=== PATIENT | male | born 1990 | race American Indian/Alaskan Native ===

== ENCOUNTER 2016-08-20 02:53 | Emergency (ER) | payer SELFPAY ==
[2016-08-20 06:55] VITALS: BP 128/76
[2016-08-20] MEDS ORDERED: MOTRIN PO ONE (07:51)
--- NOTE | 2016-08-20 07:52 | Emergency Department Report ---
ED Lower Extremity HPI - General Chief Complaint: Extremity Injury, Lower Stated Complaint: LEFT FOOT INJURY Time Seen by Provider: 08/20/16 07:50 Source: patient Mode of arrival: Ambulatory Limitations: No Limitations - History of Present Illness Initial Comments: Patient reports left foot pain after it was trapped between two pallets while at work. Complaint: foot injury (left) Onset/Timin -: hour(s) Injury: Foot: Left Type of Injury: unknown Place: work Severity: severe Severity scale (0 -10): 8 Improves With: immobilization Worsens With: weight bearing Context: direct blow Other Symptoms: other (none) Associated Symptoms: swelling, ambulatory. denies: snap/pop sensation, numbness , tingling, unable to bear weight, able to partially bear weight Treatments Prior to Arrival: other (none) - Related Data Previous Rx's Medication Instructions Recorded Last Taken Type ALBUTEROL Inhaler [ProAir HFA 1 puff IH QID PRN #1 inhalation 05/06/15 Unknown Rx Inhaler] Famotidine [Pepcid] 20 mg PO DAILY #30 tablet 05/06/15 Unknown Rx Diazepam Tab [Valium] 5 mg PO TID PRN #10 tablet 08/20/15 Unknown Rx Ibuprofen [Motrin 600 MG tab] 600 mg PO Q8H PRN #15 tablet 08/20/16 Unknown Rx Allergies Allergy/AdvReac Type Severity Reaction Status Date / Time codeine Allergy Rash Verified 11/06/13 01:36 cortisone [Cortisone] Allergy Rash Verified 11/06/13 01:36 ED Review of Systems ROS: Stated complaint: LEFT FOOT INJURY Other details as noted in HPI Respiratory: denies: cough, orthopnea, shortness of breath, SOB with exertion, SOB at rest, stridor, wheezing Cardiovascular: denies: chest pain, palpitations, dyspnea on exertion, orthopnea , edema, syncope, paroxysmal nocturnal dyspnea Gastrointestinal: denies: abdominal pain, nausea, vomiting, diarrhea, constipation Musculoskeletal: arthralgia (left foot). 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 Monroe last year, but he cannot afford the medications. - Surgical History Past Surgical History?: No - Social History Smoking Status: Never Smoker Substance Use Type: None - Medications Home Medications: Home Medications Medication Instructions Recorded Confirmed Last Taken Type ALBUTEROL Inhaler [ProAir HFA 1 puff IH QID PRN #1 inhalation 05/06/15 Unknown Rx Inhaler] Famotidine [Pepcid] 20 mg PO DAILY #30 tablet 05/06/15 Unknown Rx Diazepam Tab [Valium] 5 mg PO TID PRN #10 tablet 08/20/15 Unknown Rx Ibuprofen [Motrin 600 MG tab] 600 mg PO Q8H PRN #15 tablet 08/20/16 Unknown Rx ED Physical Exam - General Limitations: No Limitations General appearance: alert, in no apparent distress - Head Head exam: Present: atraumatic - ENT ENT exam: Present: normal exam, mucous membranes moist. Absent: mucous membranes dry - Neck Neck exam: Present: normal inspection, full ROM. Absent: tenderness, meningismus, lymphadenopathy, thyromegaly - Respiratory Respiratory exam: Present: normal lung sounds bilaterally. Absent: respiratory distress, wheezes, rales, rhonchi, stridor, chest wall tenderness, accessory muscle use, decreased breath sounds, prolonged expiratory - Cardiovascular Cardiovascular Exam: Present: regular rate, normal rhythm, normal heart sounds. Absent: systolic murmur, diastolic murmur, rubs, gallop, clicks, JVD, S3, S4 - Extremities Exam Extremities exam: Present: normal inspection, full ROM, normal capillary refill. Absent: tenderness, pedal edema, joint swelling, calf tenderness - Expanded Lower Extremity Exam Left Hip exam: Present: normal inspection, full ROM, pelvic stability Ankle exam: Present: normal inspection, full ROM. Absent: tenderness, swelling , abrasion, laceration, ecchymosis, deformity, crepidus, dislocation, erythema, anterior draw sign Foot/Toe exam: Present: normal inspection, full ROM, tenderness (with palpation to lateral), swelling (minimal to dorsum). Absent: abrasion, laceration, ecchymosis, deformity, crepidus, dislocation, erythema, amputation, puncture wound, foreign body, calcaneal tenderness, tenderness at base of 5th metatarsal , nail avulsion, subungual hematoma Neuro vascular tendon exam: Present: no vascular compromise. Absent: pulse deficit, abnormal cap refill, motor deficit, sensory deficit, tendon deficit, extremity cold to touch, pallor, abnormal 2-point discrimination, decreased fine /light touch, foot drop, peroneal nerve deficit, significant pain with passive ROM of distal joint Gait: Positive: observed and normal - Back Exam Back exam: Present: normal inspection. Absent: CVA tenderness (R), CVA tenderness (L), muscle spasm, paraspinal tenderness, vertebral tenderness - Neurological Exam Neurological exam: Present: alert, oriented X3, CN II-XII intact, normal gait, reflexes normal. Absent: motor sensory deficit - Skin Skin exam: Present: warm, dry, intact, normal color. Absent: rash ED Course Vital Signs 08/20/16 08/20/16 03:22 06:45 Temperature 98.2 F 98 F Pulse Rate 78 70 Respiratory 18 18 Rate Blood Pressure 133/80 Blood Pressure 128/76 [Left] O2 Sat by Pulse 98 98 Oximetry - Reevaluation(s) Reevaluation #1: 08/20/16 07:51 analgesic and radiology studies ordered ED Lower Extremity MDM - Radiology Data Radiology results: image reviewed EXAM: XR FOOT 3 LT HISTORY: left foot pain/caught between two pallets TECHNIQUE: Three views of the left foot PRIORS: None. FINDINGS: There is no evidence of acute fracture. There is no evidence of joint dislocation. There is no significant focal osseous lesions seen. IMPRESSION: There is no acute abnormality identified. - Medical Decision Making During the course of ED, analgesic and radiology studies ordered. The imaging study revealed no acute abnormality identified. Patient was sent home with a post-op shoe, prescription for Ibuprofen, instructed to follow-up with selective referral given at discharge, he verbalized understanding - Differential Diagnosis Left Foot Pain, Left Foot Fracture Critical care attestation.: If time is entered above; I have spent that time in minutes in the direct care of this critically ill patient, excluding procedure time. ED Disposition Clinical Impression: Left foot pain Disposition: DISCHARGED TO HOME OR SELFCARE Is pt being admited?: No Does the pt Need Aspirin: No Condition: Stable Instructions: Arthralgia (ED) Additional Instructions: Take medication as directed. Follow up with the selective referral given at discharge. Wear post-op shoe for comfort Prescriptions: Ibuprofen [Motrin 600 MG tab] 600 mg PO Q8H PRN #15 tablet PRN Reason: Pain Referrals: PRIMARY CAREMD [Primary Care Provider] - 3-5 Days RUSTY HERRERA MD [Staff Physician] - 3-5 Days Forms: Work/School Release Form(ED) Time of Disposition: 08:57
--- NOTE | 2016-08-20 08:43 | XRay Report ---
FINAL REPORT EXAM: XR FOOT 3 LT HISTORY: left foot pain/caught between two pallets TECHNIQUE: Three views of the left foot PRIORS: None. FINDINGS: There is no evidence of acute fracture. There is no evidence of joint dislocation. There is no significant focal osseous lesions seen. IMPRESSION: There is no acute abnormality identified.
== END 2016-08-20 09:05 | disposition home or self-care (01) ==
LOC: ED 02:53
DX: M79.672 Pain in left foot (principal); W22.8XXA Striking against or struck by other objects, initial encounter; Y93.9 Activity, unspecified; Y92.9 Unspecified place or not applicable; Y99.9 Unspecified external cause status

== ENCOUNTER 2016-10-16 04:35 | Emergency (ER) | payer OTHER ==
[2016-10-16 08:17] VITALS: BP 137/95
[2016-10-16] MEDS ORDERED: LIDOCAINE VISCOUS 2% PO ONE (08:52)
[2016-10-16] MEDS ORDERED: ALUM-MAG HYDROX-SIMETH 200-200-20MG/5ML PO ONE (08:52)
--- NOTE | 2016-10-16 10:09 | XRay Report ---
ROUTINE CHEST, TWO VIEWS: HISTORY: chest pain. The trachea, heart, mediastinal contour, lung vasquez and bony thorax are unremarkable. IMPRESSION: Unremarkable chest x-ray. No significant change since 05/06/15.
--- NOTE | 2016-10-16 10:49 | Emergency Department Report ---
ED General Adult HPI - General Chief complaint: Chest Pain Stated complaint: CHEST PAIN Time Seen by Provider: 10/16/16 08:39 Source: patient Mode of arrival: Ambulatory Limitations: No Limitations - History of Present Illness Initial comments: PT c/o pain with eating x 1 week. PT states he feels like his food sits in his chest. PT states he has a hx of GERD and he is currently not taking medication for it. PT denies n/v. pt states he can tolerate po MD Complaint: gerd Onset/Timin -: Gradual, week(s) Location: chest Radiation: non-radiation Severity scale (0 -10): 5 Consistency: intermittent Worsens with: eating Associated Symptoms: denies: fever/chills, nausea/vomiting Treatments Prior to Arrival: none - Related Data Previous Rx's Medication Instructions Recorded Last Taken Type Omeprazole Magnesium [PriLOSEC Otc] 20 mg PO QDAY #14 tablet. 10/16/16 Unknown Rx Allergies Allergy/AdvReac Type Severity Reaction Status Date / Time codeine Allergy Rash Verified 11/06/13 01:36 cortisone [Cortisone] Allergy Rash Verified 11/06/13 01:36 ED Review of Systems ROS: Stated complaint: CHEST PAIN Other details as noted in HPI Comment: All other systems reviewed and negative Cardiovascular: chest pain (feels like food is stuck ) Gastrointestinal: denies: abdominal pain, nausea, vomiting Musculoskeletal: denies: back pain ED Past Medical Hx - Past Medical History Hx Asthma: No Additional medical history: Patient reports being diagnosed with glaucoma 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 - Social History Smoking Status: Former Smoker Substance Use Type: None - Medications Home Medications: Home Medications Medication Instructions Recorded Confirmed Last Taken Type Omeprazole Magnesium [PriLOSEC Otc] 20 mg PO QDAY #14 tablet. 10/16/16 Unknown Rx ED Physical Exam - General Limitations: No Limitations General appearance: alert, in no apparent distress - Head Head exam: Present: atraumatic, normocephalic - Eye Eye exam: Present: normal appearance - ENT ENT exam: Present: normal exam, normal orophraynx - Neck Neck exam: Present: normal inspection - Respiratory Respiratory exam: Present: normal lung sounds bilaterally. Absent: respiratory distress - Cardiovascular Cardiovascular Exam: Present: regular rate, normal rhythm, normal heart sounds - GI/Abdominal GI/Abdominal exam: Present: soft, normal bowel sounds. Absent: tenderness - Rectal Rectal exam: Present: deferred - Extremities Exam Extremities exam: Present: normal inspection, full ROM - Back Exam Back exam: Present: normal inspection, full ROM - Neurological Exam Neurological exam: Present: alert, oriented X3, normal gait - Psychiatric Psychiatric exam: Present: normal affect, normal mood - Skin Skin exam: Present: warm, dry ED Course Vital Signs 10/16/16 08:10 Temperature 98.1 F Pulse Rate 77 Blood Pressure 137/95 O2 Sat by Pulse 98 Oximetry - Reevaluation(s) Reevaluation #1: 10/16/16 10:48 PT state he is feeling much better after meds. PT aware he will need to take medication daily to treat his Gerd. PT aware he will need to follow up with GI and he may need an outpt EGD. PT has no questions at this time. - Pulse Oximetry Interpretation Digit-Finger Initial Pulse Oximetry Readin Actions Taken: none ED Medical Decision Making - EKG Data EKG shows normal: sinus rhythm Rate: normal - EKG Data When compared to previous EKG there are: other (early repolarization seen on previous EKG ) - Radiology Data Radiology results: report reviewed CXR - NAP - Differential Diagnosis gerd, dyspepsia, dysphagia Critical care attestation.: If time is entered above; I have spent that time in minutes in the direct care of this critically ill patient, excluding procedure time. ED Disposition Clinical Impression: Dyspepsia Disposition: DISCHARGED TO HOME OR SELFCARE Is pt being admited?: No Does the pt Need Aspirin: No Condition: Stable Instructions: Gastroesophageal Reflux Disease (ED), Esophageal Spasm (ED), Diet for Ulcers and Gastritis (ED) Referrals: PRIMARY CAREMD [Primary Care Provider] - 3-5 Days [facility] [Provider Group] - 3-5 Days Forms: Work/School Release Form(ED) Time of Disposition: 10:51
== END 2016-10-16 11:04 | disposition home or self-care (01) ==
LOC: ED 04:35
DX: R10.13 Epigastric pain (principal); Z87.891 Personal history of nicotine dependence; Z88.6 Allergy status to analgesic agent; Z88.8 Allergy status to other drugs, medicaments and biological substances
CPT/HCPCS: 71020; 93005; 93010; 99283

== ENCOUNTER 2017-03-14 03:21 | Emergency (ER) | payer OTHER ==
[2017-03-14 04:19] LABS: Hematocrit 44.8 % (35.5-45.6); Hemoglobin 14.9 gm/dl (11.8-15.2); Mean Corpuscular HGB Conc 33 % (32-34); Mean Corpuscular Hemoglobin 31 pg (28-32); Mean Corpuscular Volume 93 fl (84-94); Platelet Count 193 K/mm3 (140-440); Red Blood Count 4.81 M/mm3 (3.65-5.03); White Blood Count 5.8 K/mm3 (4.5-11.0)
[2017-03-14 04:42] LABS: Anion Gap 19 mmol/L; Blood Urea Nitrogen 9 mg/dL (9-20); Carbon Dioxide 22 mmol/L (22-30); Chloride 103.1 mmol/L (98-107); Glucose 130 mg/dL (75-100); Potassium 3.6 mmol/L (3.6-5.0); Sodium 140 mmol/L (137-145)
[2017-03-14 04:44] LABS: INR 0.96 (0.87-1.13); Partial Thromboplastin Time 28.7 Sec. (24.2-36.6)
[2017-03-14] MEDS ORDERED: FLEXERIL PO ONE (07:18)
--- NOTE | 2017-03-14 07:37 | Emergency Department Report ---
HPI - General Chief Complaint: Extremity Injury, Lower Time Seen by Provider: 03/14/17 07:33 - HPI HPI: 26-year-old male with no past medical history presents to ED complaining of left -sided leg pain for the past 2 weeks. 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 Patient states he decided to come in today and have his leg checked patient describes pain as throbbing nature localized to the left thigh and travels down his thighs. Patient denies fevers/ chills/nausea/vomiting/chest pain shortness of breath/dizziness/calf tenderness ED Past Medical Hx - Past Medical History Previous Medical History?: Yes Hx Asthma: No Additional medical history: Patient reports being diagnosed with glaucoma by health director Dr. Monroe last year, but he cannot afford the medications. - Surgical History Past Surgical History?: No - Social History Smoking Status: Former Smoker Substance Use Type: Alcohol - Medications Home Medications: Home Medications Medication Instructions Recorded Confirmed Last Taken Type Omeprazole Magnesium [PriLOSEC Otc] 20 mg PO QDAY #14 tablet. 10/16/16 Unknown Rx Acetaminophen [Acetaminophen ER 650 mg PO Q8HR PRN #40 tablet.er 03/14/17 Unknown Rx TAB] methOCARBAMOL [Robaxin TAB] 500 mg PO BID #30 tab 03/14/17 Unknown Rx ED Review of Systems ROS: Stated complaint: LEG PAIN Other details as noted in HPI Constitutional: denies: chills, fever Eyes: denies: eye pain, eye discharge, vision change ENT: denies: ear pain, throat pain Respiratory: denies: cough, shortness of breath, wheezing Cardiovascular: denies: chest pain, palpitations Endocrine: no symptoms reported Gastrointestinal: denies: abdominal pain, nausea, diarrhea Genitourinary: denies: urgency, dysuria Musculoskeletal: denies: back pain, joint swelling, arthralgia Skin: denies: rash, lesions Neurological: denies: headache, weakness, paresthesias Psychiatric: denies: anxiety, depression Hematological/Lymphatic: denies: easy bleeding, easy bruising Physical Exam - Physical Exam Vital Signs: Vital Signs 03/14/17 03:24 Temperature 98.3 F Pulse Rate 78 Respiratory 18 Rate Blood Pressure 146/93 O2 Sat by Pulse 99 Oximetry Physical Exam: GENERAL: Alert and oriented x3, no apparent distress, Normal Gait, atraumatic. LUNGS: Symetrical with respiration, No wheezing, no rales or crackles, CTAB. HEART: S1, S2 present, regular rate and rhythm without murmur, no rubs, no gallops. Non tender to palpation ABDOMEN: No organomegaly was noted,Positive bowel sounds, soft, and non- distended. . Nontender to palpation on all Quadrants, NO CVA tenderness. EXTREMITIES/MUSCULOSKELETAL: No cyanosis, clubbing, rash, lesions or edema. Full ROM bilaterally. UE/LE Pulses 2+ bilaterally. LE and UE 5+ strength bilaterally, straight leg raise negative bilaterally, no calf tenderness bilaterally, Homans sign negative, no edema bilaterally NEUROLOGIC: The patient is cooperative with no focal neurologic deficits. Cranial nerves II through XII are grossly intact. Normal speech. PSYCHIATRIC: Mood is congruent with affect, denies suicidal or homicidal ideations. SKIN: Warm and dry, No lesions, No ulceration or induration present. ED Course Vital Signs 03/14/17 03:24 Temperature 98.3 F Pulse Rate 78 Respiratory 18 Rate Blood Pressure 146/93 O2 Sat by Pulse 99 Oximetry ED Medical Decision Making - Lab Data Result diagrams: 03/14/17 03:58 03/14/17 03:58 Laboratory Last Values WBC 5.8 K/mm3 (4.5-11.0) 03/14/17 03:58 RBC 4.81 M/mm3 (3.65-5.03) 03/14/17 03:58 Hgb 14.9 gm/dl (11.8-15.2) 03/14/17 03:58 Hct 44.8 % (35.5-45.6) 03/14/17 03:58 MCV 93 fl (84-94) 03/14/17 03:58 MCH 31 pg (28-32) 03/14/17 03:58 MCHC 33 % (32-34) 03/14/17 03:58 RDW 13.0 % (13.2-15.2) L 03/14/17 03:58 Plt Count 193 K/mm3 (140-440) 03/14/17 03:58 PT 13.3 Sec. (12.2-14.9) 03/14/17 03:58 INR 0.96 (0.87-1.13) 03/14/17 03:58 APTT 28.7 Sec. (24.2-36.6) 03/14/17 03:58 D-Dimer < 135 ng/mlDDU (0-234) 03/14/17 03:58 Sodium 140 mmol/L (137-145) 03/14/17 03:58 Potassium 3.6 mmol/L (3.6-5.0) 03/14/17 03:58 Chloride 103.1 mmol/L (98-107) 03/14/17 03:58 Carbon Dioxide 22 mmol/L (22-30) 03/14/17 03:58 Anion Gap 19 mmol/L 03/14/17 03:58 BUN 9 mg/dL (9-20) 03/14/17 03:58 Creatinine 0.9 mg/dL (0.8-1.5) 03/14/17 03:58 Estimated GFR > 60 ml/min 03/14/17 03:58 BUN/Creatinine Ratio 10.00 % 03/14/17 03:58 Glucose 130 mg/dL (75-100) H 03/14/17 03:58 Calcium 9.0 mg/dL (8.4-10.2) 03/14/17 03:58 - Medical Decision Making 26-year-old male presents with myalgia ED course: CBC, CMP, d-dimer, coags studies all ordered. After normal examination, d- dimer/ Coags are negative therefore Doppler studies were not necessary recommended Discussed lab results with the patient. She states he has acid reflux and takes medicine for that so he discharged patient with Tylenol instead of NSAIDs for pain Vital signs are normal patient is in no acute distress Discussed the patient to follow up with the primary care discussed with the patient is symptoms worsen to return to the nearest ED Cause proper stretching techniques while driving long distances to stop and take breaks every hour. Critical care attestation.: If time is entered above; I have spent that time in minutes in the direct care of this critically ill patient, excluding procedure time. ED Disposition Clinical Impression: Myalgia Thigh pain, musculoskeletal Qualifiers: Laterality: left Qualified Code(s): M79.605 - Pain in left leg Disposition: DC-01 TO HOME OR SELFCARE Is pt being admited?: No Does the pt Need Aspirin: No Condition: Stable Instructions: Trigger Point Pain (ED), Musculoskeletal Pain (ED), Arthralgia ( ED) Prescriptions: Acetaminophen [Acetaminophen ER TAB] 650 mg PO Q8HR PRN #40 tablet.er PRN Reason: Pain methOCARBAMOL [Robaxin TAB] 500 mg PO BID #30 tab Referrals: PRIMARY CARE, [Primary Care Provider] - 3-5 Days [facility] [Outside] - 3-5 Days [facility] [Outside] - 3-5 Days Forms: Work/School Release Form(ED) Time of Disposition: 08:29
[2017-03-14 08:36] VITALS: BP 140/90
== END 2017-03-14 08:36 | disposition home or self-care (01) ==
LOC: ED 03:21
DX: M79.652 Pain in left thigh (principal); Z87.891 Personal history of nicotine dependence
CPT/HCPCS: 36415; 80048; 85027; 85379; 85610; 85730; 99283

== ENCOUNTER 2017-05-18 09:04 | Emergency (ER) | payer OTHER ==
[2017-05-18 09:21] VITALS: BP 136/85
[2017-05-18 09:53] LABS: Hematocrit 42.5 % (35.5-45.6); Hemoglobin 14.4 gm/dl (11.8-15.2); Mean Corpuscular HGB Conc 34 % (32-34); Mean Corpuscular Hemoglobin 32 pg (28-32); Mean Corpuscular Volume 93 fl (84-94); Platelet Count 201 K/mm3 (140-440); Red Blood Count 4.55 M/mm3 (3.65-5.03); Red Cell Distribution Width 12.9 % (13.2-15.2); White Blood Count 6.4 K/mm3 (4.5-11.0)
[2017-05-18 10:04] LABS: Anion Gap 17 mmol/L; BUN/Creatinine Ratio 12; Blood Urea Nitrogen 12 mg/dL (9-20); Calcium 9.6 mg/dL (8.4-10.2); Carbon Dioxide 24 mmol/L (22-30); Chloride 103.1 mmol/L (98-107); Glucose 130 mg/dL (75-100); Potassium 3.8 mmol/L (3.6-5.0); Sodium 140 mmol/L (137-145)
[2017-05-18 10:59] LABS: Blastocytes % (Manual) 0 %; Diff Status Complete; Platelet Estimate Consistent w Auto; RBC Morphology Normal; Smudge Cells Few
== END 2017-05-18 15:00 | disposition left against medical advice (07) ==
LOC: ED 09:04
DX: R07.9 Chest pain, unspecified (principal); Z53.21 Procedure and treatment not carried out due to patient leaving prior to being seen by health care provider
CPT/HCPCS: 36415; 80048; 84484; 85007; 85025; 93005; 93010